=== PATIENT | female | born 1980 | race Two or more races ===

== ENCOUNTER 2020-03-18 12:17 | Day surgery (SDC) | payer OTHER ==
[~2020-03-18 12:17] MED LIST: LOW OGESTREL PO
== END 2020-03-18 20:05 | disposition home or self-care (01) ==
LOC: CIR.AMB 12:17
PROVIDERS: ATTEND Obstetrics & Gynecology Obstetrics
DX: N93.8 Other specified abnormal uterine and vaginal bleeding (principal); Z20.828 Contact with and (suspected) exposure to other viral communicable diseases